=== PATIENT | female | born 1985 | race Hispanic/Latino ===

== ENCOUNTER 2025-01-06 09:57 | Day surgery (SDC) | payer MEDICARE, SELFPAY ==
--- NOTE | 2025-01-04 13:48 | EKG12_ITS ---
Test Reason : PRE OP Blood Pressure : */* mmHG Vent. Rate : 72 BPM Atrial Rate : 72 BPM P-R Int : 142 ms QRS Dur : 74 ms QT Int : 406 ms P-R-T Axes : 56 -21 7 degrees QTcB Int : 444 ms Normal sinus rhythm Possible Left atrial enlargement Low voltage QRS Borderline ECG Confirmed by NAYAN MONTOYA, CHUY ([id number]), film editor ARLETTE LAURENT ([id number]) on 01/05/2025 5:47:19 AM Referred By: Demetra Celeste Confirmed By: CHUY SPICER MD
[2025-01-04 14:19] LABS: Hematocrit 41.6 % (37-47); Mean Corp Hgb Conc 33.7 g/dL (32-36); Mean Corpuscular Hgb 30.1 pg (27.0-32.0); Mean Corpuscular Volume 89.5 fL (81-99); Mean Platelet Vol. 8.6 fl (6.2-12.0); Platelet Count 195 K/mm3 (150-450); RBC Distribution Width CV 12.2 % (11.6-14.6); RBC Distribution Width SD 39.9 fl (35.1-43.9); Red Blood Count 4.65 M/mm3 (4.2-5.4); White Blood Count 8.7 K/mm3 (4.4-11.0)
[2025-01-04 14:56] LABS: ALB/GLOB Ratio 1.4 RATIO (0.9-2.4); AST(SGOT) 26 U/L (<=31); Alanine Aminotransfer ALT/SGPT 33 U/L (<=34); Albumin, Serum 4.2 g/dL (3.5-5.0); Alkaline Phosphatase 82 U/L (35-104); Anion Gap 10 (5-15); BUN 13 mg/dL (4-19); BUN/Creat Ratio 16.9 RATIO (10-20); Calcium,Total 9.8 mg/dL (7.6-11.0); Carbon Dioxide 23.7 mmol/L (21.0-32.0); Chloride 105 mmol/L (98-108); Creatinine, Serum 0.75 mg/dL (0.70-1.20); EST Glomerular Filtration Rate 102 (>60); Glucose 120 mg/dL (70-99); Potassium 4.2 mmol/L (3.3-5.1); Protein, Total 7.2 g/dL (5.9-8.4); Sodium Level 139 mmol/L (133-145); Total Bilirubin 0.44 mg/dL (0.00-1.30)
--- NOTE | 2025-01-05 11:58 | PAT.ANESEVAL ---
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 When Was Last Pacemaker Check QUESTION #4 FULL TEXT: You/Your Family Experience fever (hyperthermia) with Anesthesia Last Oral Intake Last Oral intake: Last Oral Intake NPO since Meds taken in AM with sips of water? Meds patient instructed to take am of surgery PONV PONV - engineering department chair: PONV - engineering department chair Female Yes 01/03/25 12:32 HX of Motion Sickness No 01/03/25 12:32 HX of N/V After Surgery No 01/03/25 12:32 Non-Smoker Yes 01/03/25 12:32 Duration of Surgery greater No 01/03/25 12:32 than 60 minutes Number of Risk Factors 2 01/03/25 12:32 PONV Score Moderate Risk 01/03/25 12:32 Respiratory Assessment Respiratory Assessment - engineering department chair: Respiratory Tract Infection Hx - engineering department chair Hx Respiratory Tract Infection No 01/03/25 12:32 STOP Sleep Apnea STOP Sleep Apnea - engineering department chair: STOP Sleep Apnea - engineering department chair Hx Hypertension No 01/03/25 12:32 Hx Sleep Apnea No 01/03/25 12:32 CPAP BIPAP Do you snore loudly (louder Yes 01/03/25 12:32 than talking or can be heard Do you often feel tired/ No 01/03/25 12:32 fatigued/ sleepy during daytime? Has anyone observed you stop No 01/03/25 12:32 breathing during sleep? STOP Results Negative 01/03/25 12:32 QUESTION #5 FULL TEXT : Do you snore loudly (louder than talking or can be heard through closed doors)? 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 Specify any problems Hx of Preganancy in last 3 No 01/03/25 12:32 Months Nurse Filling Out Transfusion DSCHRIBER 01/03/25 12:32 & Questions: Date: 01/03/25 01/03/25 12:32 Time: 12:36 01/03/25 12:32 Patient unable to answer at this time (ie. 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 Wears glasses Hallucinations Depression Anxiety Thyroid disease Diabetes Arthritis High cholesterol Back pain Migraine headache Seizures Heartburn History of IBS Non-smoker Hx of reduction of nasal fracture Home Medications ?Medication ?Instructions ?Recorded ?Last Taken ?Type benztropine 1 mg tablet 1 mg PO BID 01/03/25 Unknown History dulaglutide 3 mg/0.5 mL 3 mg subcut TU 01/03/25 12/28/24 History subcutaneous pen injector (Trulicity) duloxetine 30 mg capsule,delayed 30 mg PO DAILY 01/03/25 Unknown History release (Cymbalta) hydroxyzine HCl 100 mg tablet 100 mg PO TID 01/03/25 Unknown History levothyroxine 125 mcg tablet 125 mcg PO DAILY 01/03/25 Unknown History lubiprostone 24 mcg capsule 24 mcg PO BID 01/03/25 Unknown History rosuvastatin 20 mg tablet 20 mg PO DAILY 01/03/25 Unknown History topiramate 100 mg tablet (Topamax) 100 mg PO BID 01/03/25 Unknown History trazodone 100 mg tablet 100 mg PO QHS 01/03/25 Unknown History vitamin A-vitamin E 25,000 unit-30 1 cap PO DAILY 01/03/25 Unknown History unit capsule Allergy/AdvReac Type Severity Reaction Status Date / Time Penicillins Allergy Severe Swelling Verified 01/03/25 12:17 Surgical History (Updated 01/03/25 @ 13:06 by Sydney Jeffery) Hx of breast biopsy Hx of colonoscopy Social History Smoking Status: Never smoker Audit: Pertinent Findings Pertinent Findings EKG Perinent findings: 01/04/2025. Normal sinus rhythm 72 bpm. Left atrial enlargement. Recommendation Anesthesia Recommendation Anesthesia recommendation: OPTIMIZED for anesthesia
[2025-01-06] VITALS (8 sets, daily range): BP systolic 94–108; BP diastolic 53–67; PULSE 73–87; RESP 16; TEMP 36.2–36.4; O2SAT 94–100; BMI 28.6
[2025-01-06 10:32] LABS: Internal QC Validated? YES +Cl - CLEAR BKGD; Pregnancy, Urine Negative Negative
--- NOTE | 2025-01-06 11:05 | NURSING ---
During AC Preop assessment and check-in, [employer] used. Emy ID#[id number]
[2025-01-06 11:24] LABS: Bedside Glucose 146 mg/dL (74-106)
--- NOTE | 2025-01-06 11:25 | PRE.ANES_ITS ---
ASA Classification* ASA Classification ASA Classification: 2 Assessment & Plan Anesthesia* Anesthesia Assessment Anesthesia Assessment: Discussed sedation and/or anesthesia options, risks, benefits, and alternatives with patient/parents/legal guardian/POA. Questions invited. The patient/parents/legal guardian/POA seems to understand and agrees to proceed with anesthesia plan. Reviewed the physical assessment, medical history, allergy history and patient home medications list prior to surgery/procedure/anesthetic and documented any changes. Performed airway and anesthesia risk assessments. Anesthesia Type Anesthesia Type: MAC History Source History Obtained from:: Patient and Chart Anesthesia Focused Assessment* Temperature: 97.5 F Pulse Rate: 73 Blood Pressure: 108/60 Respiratory Rate: 16 Pulse Ox: 99 Oxygen Delivery Method: Room Air Airway Assessment Mouth opens: >3 cm Mallampati Score: I Teeth Condition: Missing (Patient is missing 3 teeth. Rest are tight.) Neck Range of motion (ROM): Full ROM Focused Labs Anesthesia Preop lab: CBC WBC 8.7 K/mm3 (4.4-11.0) 01/04/25 14:05 01/04/25 RBC 4.65 M/mm3 (4.2-5.4) 01/04/25 14:05 01/04/25 Hgb 14.0 g/dL (12.0-15.0) 01/04/25 14:05 01/04/25 Hct 41.6 % (37-47) 01/04/25 14:05 01/04/25 Plt Count 195 K/mm3 (150-450) 01/04/25 14:05 01/04/25 CHEMISTRY Potassium 4.2 mmol/L (3.3-5.1) 01/04/25 14:05 01/04/25 Sodium 139 mmol/L (133-145) 01/04/25 14:05 01/04/25 BUN 13 mg/dL (4-19) 01/04/25 14:01/04/25 Creatinine 0.75 mg/dL (0.70-1.20) 01/04/25 14:05 01/04/25 Glucose 120 mg/dL (70-99) H 01/04/25 14:05 01/04/25 POC Glucose 146 mg/dL (74-106) H 01/06/25 11:03 01/06/25 COAG Urine Test Negative Negative 01/06/25 10:13 01/06/25 Pre-Assessment Diagnosis/Proposed Procedure Planned Operative Procedure(s): HYSTEROSCOPY D&C POSS POLYPECTOMY POSS IUD INSERTION Anesthesia History 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 When Was Last Pacemaker Check QUESTION #4 FULL TEXT: You/Your Family Experience fever (hyperthermia) with Anesthesia Last Oral Intake Last Oral intake: Last Oral Intake NPO since 22:30 01/06/25 10:41 Meds taken in AM with sips of water? Meds patient instructed to take am of surgery PONV PONV - apartment assistant manager: PONV - apartment assistant manager Female Yes 01/03/25 12:32 HX of Motion Sickness No 01/03/25 12:32 HX of N/V After Surgery No 01/03/25 12:32 Non-Smoker Yes 01/03/25 12:32 Duration of Surgery greater No 01/03/25 12:32 than 60 minutes Number of Risk Factors 2 01/03/25 12:32 PONV Score Moderate Risk 01/03/25 12:32 Height & Weight Height & Weight: Anesthesia: Height & Weight Height 5 ft 01/06/25 10:41 Weight: 66.497 kg 01/06/25 10:41 Body Mass Index (BMI) 28.6 01/06/25 10:41 Respiratory Assessment Respiratory Assessment - apartment assistant manager: Respiratory Tract Infection Hx - apartment assistant manager Hx Respiratory Tract Infection No 01/03/25 12:32 STOP Sleep Apnea STOP Sleep Apnea - apartment assistant manager: STOP Sleep Apnea - apartment assistant manager Hx Hypertension No 01/03/25 12:32 Hx Sleep Apnea No 01/03/25 12:32 CPAP BIPAP Do you snore loudly (louder Yes 01/03/25 12:32 than talking or can be heard Do you often feel tired/ No 01/03/25 12:32 fatigued/ sleepy during daytime? Has anyone observed you stop No 01/03/25 12:32 breathing during sleep? STOP Results Negative 01/03/25 12:32 QUESTION #5 FULL TEXT : Do you snore loudly (louder than talking or can be heard through closed doors)? 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 Specify any problems Hx of Preganancy in last 3 No 01/03/25 12:32 Months Nurse Filling Out Transfusion DSCHRIBER 01/03/25 12:32 & Questions: Date: 01/03/25 01/03/25 12:32 Time: 12:36 01/03/25 12:32 Patient unable to answer at this time (ie. 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 Wears glasses Hallucinations Depression Anxiety Thyroid disease Diabetes Arthritis High cholesterol Back pain Migraine headache Seizures Heartburn History of IBS Non-smoker Hx of reduction of nasal fracture Home Medications ?Medication ?Instructions ?Recorded ?Last Taken ?Type benztropine 1 mg tablet 1 mg PO BID 01/03/25 04/09/2 5 History dulaglutide 3 mg/0.5 mL 3 mg subcut TU 01/03/2510/23 History subcutaneous pen injector (Trulicity) duloxetine 30 mg capsule,delayed 30 mg PO DAILY 01/04/25 History release (Cymbalta) hydroxyzine HCl 100 mg tablet 100 mg PO TID 01/03/25 0 01/04/25 History levothyroxine 125 mcg tablet 125 mcg PO DAILY 01/03/25 01/05/25 History lubiprostone 24 mcg capsule 24 mcg PO BID 01/03/2506/23 History rosuvastatin 20 mg tablet 20 mg PO DAILY 01/03/2505/23 History topiramate 100 mg tablet (Topamax) 100 mg PO BID 01/0301/05/25 History trazodone 100 mg tablet 100 mg PO QHS 01/03/2501/05 History vitamin A-vitamin E 25,000 unit-30 1 cap PO DAILY 04/2212/30/24 History unit capsule Allergy/AdvReac Type Severity Reaction Status Date / Time Penicillins Allergy Severe Swelling Verified 01/06/25 10:33 ciprofloxacin (From Cipro) Allergy Intermediate Other Verified 01/06/25 10:33 Surgical History Hx of breast biopsy Hx of colonoscopy Social History Smoking Status: Never smoker Review of Systems (Anesthesia) ROS Narrative System reviewed and no additional complaints, except as documented.
--- NOTE | 2025-01-06 11:30 | EMB_PTH ---
PATIENT: BANDAR SPRAGUE [place] [facility] [place][id number] AGE/SX: 39/F ROOM: RE01/06/[address]: Dr. Demetra Celeste, : 1985 BED: DIS: 01/06/2025 SPEC #: [id number] RECD: 01/06/25 13:53 STATUS: RUKHSANA GÉNESIS #: [id number] NII: 01/06/25 11:[address]: Demetra Celeste DEPT: SURGICAL PATHOLOGY RECD BY: Eladio Riojas Tissues: A - Endometrium, NOS Procedures: Surgery Specimen Level IV HEADER OPERATION: Hysteroscopy, D&C, possible polypectomy PRE-OP DIAGNOSIS: Dysfunctional uterine bleeding, vascular endometrium on pelvic ultrasound TISSUE SUBMITTED: A- Endometrial curettings MICROSCOPIC DIAGNOSIS A. Endometrium, curettage * Secretory endometrium MICROSCOPIC DESCRIPTION Slides are reviewed. GROSS DESCRIPTION A. Received in formalin in a container labeled with the patient's name, date of , and endometrial curettings are multiple espinosa-pink fragments of soft tissue admixed with blood and mucus measuring 2.5 x 2.3 x 0.3 cm in aggregate. Submitted in toto in A1. [facility] 01/07/2025 CPT:93149
--- NOTE | 2025-01-06 11:48 | PCM.DC ---
Discharge Instructions Diet Discharge Diet: No restrictions DC O2, CPAP, BIPAP needs Home O2 Discharge instructions: No Dressing / Incision Discharge Activity: May Drive (once you are more than 24 hours out from surgery) and May Shower (once you are more than 24 hours out from surgery) May resume sexual activity in: 1 week (nothing in the vagina and no soaking in water for 1 week) Weight Bearing Status: Weight bearing as tolerated Lifting Restrictions: none Dressing / Incision Call your doctor if you observe: Fever of 101 or Higher, Using more than 1 pad per hour, Shortness of breath, Dizziness, Chest pain, Increased palpitations (irregular heartbeat), Calf discomfort and Uncontrolled pain Follow Up Care Please Follow Up With: Demetra Celeste DO When: 4 weeks for IUD check Test Results: Test results from this visit will be discussed in further detail at your follow-up appointment, if applicable. Discharge Plan Admission Primary Reason for Your Visit: surgery Attending Provider: Demetra Celeste Primary Care Provider: LUIS ARMANDO ESTRADA Instructions Print Language: [place] Discharge Orders/Prescriptions Prescriptions: Continued Trulicity 3 mg/0.5 mL pen injector 3 mg subcut TU rosuvastatin 20 mg tablet 20 mg PO DAILY topiramate [Topamax] 100 mg tablet 100 mg PO BID hydroxyzine HCl 100 mg tablet 100 mg PO TID benztropine 1 mg tablet 1 mg PO BID lubiprostone 24 mcg capsule 24 mcg PO BID duloxetine [Cymbalta] 30 mg capsule,delayed release(DR/EC) 30 mg PO DAILY trazodone 100 mg tablet 100 mg PO QHS vitamin A-vitamin E 25,000-30 unit capsule 1 cap PO DAILY levothyroxine 125 mcg tablet 125 mcg PO DAILY Referrals / Follow Up: Luis Armando Estrada [Other] Disposition Disposition (needs filled in before D/C Order can be placed): Home, Self Care
[2025-01-06] MEDS: Lidocaine 1%/Epi 1:200 (30ml) 30 ML AMPUL (12:01)
[2025-01-06] MEDS: Levonorgestrel IUD (Liletta) 1 EACH INTRA-UTER (12:15)
--- NOTE | 2025-01-06 12:23 | PCM.OPRPT ---
Problems Associated Problem List Diagnoses (1) DUB (dysfunctional uterine bleeding): (2) Endometrial polyp: Operative Report (Standard) Operative Information Date of Procedure: 01/06/25 Pre-Operative Diagnosis: DUB, endometrial polyp Post-Operative Diagnosis: As above Surgery/Procedure Performed: Hysteroscopy, D&C, polypectomy, Liletta IUD insertion manager visual: No Type of Anesthesia: MAC RN Documented Start/Stop Times: Operation Date: 01/06/25 11:30 Case Time Into Pre-Op 01/06/25 10:00 Anesthesia Start 01/06/25 11:46 Into Room 01/06/25 11:46 Procedure Start 01/06/25 12:01 Procedure End 01/06/25 12:19 Anesthesia End 01/06/25 12:23 Out of Room 01/06/25 12:23 Into Recovery 01/06/25 12:25 Procedure Start Time: 12:01 Procedure Stop Time: 12:19 Select all DRAINS/GRAFTS/IMPLANTS that apply: None Special Medications: None Estimated Blood Loss: < 20 mL Fluids Replaced: See anesthesia record Specimen collected: Yes Description of specimen(s) removed: Endometrial curettings Endometrial polyp Description of surgery: Patient was taken to the operating room where MAC anesthesia was induced and found to be adequate. She was prepped and draped in the dorsal lithotomy position using yellowfin stirrups. A weighted speculum was placed in the vagina to expose the cervix. The anterior lip of the cervix was grasped with a single-tooth tenaculum. 10 cc of local was injected circumferentially in the cervix. The cervix was serially dilated to accommodate the Symphion hysteroscope. The Symphion hysteroscope was advanced into the uterus, and normal saline was used as distention media to distend the uterine cavity. Bilateral tubal ostia were visualized. There was a single endometrial polyp that was noted. The cavity was otherwise normal-appearing. The Symphion resection device was used to resect the 1 endometrial polyp. The Symphion hysteroscope was then removed. A sharp curettage was performed for a moderate amount of tissue. The endometrial polyp and endometrial cuttings were sent to pathology for review. The uterus sounded to 8 cm. The Liletta IUD was inserted at the fundus of the uterus in usual sterile fashion. The strings were trimmed to 2 cm. Bleeding was scant. All instruments were removed from the vagina. Sponge counts were correct. A vaginal sweep was performed. The patient was taken to the recovery in stable condition. Surgical Findings: 1 endometrial polyp in the uterine cavity Uterus sounded to 8 cm Complications Complications: No Admit VTE Documentation VTE Present on Admission: No VTE Mechan Device Prophylaxis: SCD's
--- NOTE | 2025-01-06 12:28 | PCM.POST.ANE ---
Anesthesia: Postop Eval I Current Vital Signs Temperature: 97.2 F Pulse Rate: 87 Blood Pressure: 98/53 Respiratory Rate: 16 Pulse Ox: 94 Assessment Airway patent: Yes Spontaneous unlabored respirations: Yes nausea: No Vomiting: No Anesthesia Complication: No Fluid Hydration Crystalloid volume administer (ml): 250 Total IV fluid infused: 250 Progress Note Anesthesia document: Postop Eval 1 completed: Yes
--- NOTE | 2025-01-06 12:58 | POSTOPAN2_ITS ---
Anesthesia Postop Eval I Sum Postop Eval Completion status Anesthesia document: Postop Eval 1 completed: Yes Anesthesia Postop Eval I Summary Anesthesia Postop Eval I Summary: Anesthesia Postop Eval I: Assessment Summary Airway patent Yes 01/06/25 12:28 AUDIT [email or web address].TNES Spontaneous unlabored Yes 01/06/25 12:28 AUDIT ASSOCIATE.TNES respirations Mental status nausea No 01/06/25 12:28 AUDIT ASSOCIATE.TNES Vomiting No 01/06/25 12:28 AUDIT ASSOCIATE.TNES Anesthesia Postop Eval I: Fluid Summary Crystalloid volume administer 250 01/06/25 12:28 AUDIT ASSOCIATE.TNES (ml) Colloids volume administered ( ml) Blood Product volume administered (ml) Total IV fluid infused 250 01/06/25 12:28 AUDIT [email or web address].TNES Anesthesia Postop Eval I: Summary Notes Anesthesia Complication No 01/06/25 12:28 AUDIT [email or web address].TNES Anesthesia Complication Comment: Post-operative progress note Anesthesia: Postop Eval II Evaluation Mental status: Awake and Calm Pain Level: 1 nausea: No Vomiting: No Complications Anesthesia Complication: No
--- NOTE | 2025-01-06 12:58 | PCM.POSTANE2 ---
Anesthesia Postop Eval I Sum Postop Eval Completion status Anesthesia document: Postop Eval 1 completed: Yes Anesthesia Postop Eval I Summary Anesthesia Postop Eval I Summary: Anesthesia Postop Eval I: Assessment Summary Airway patent Yes 01/06/25 12:28 COGNOS [email or web address] Spontaneous unlabored Yes 01/06/25 12:28 COGNOS [email or web address] respirations Mental status nausea No 01/06/25 12:28 COGNOS [email or web address].TNES Vomiting No 01/06/25 12:28 COGNOS [email or web address] Anesthesia Postop Eval I: Fluid Summary Crystalloid volume administer 250 01/06/25 12:28 COGNOS [email or web address].TNES (ml) Colloids volume administered ( ml) Blood Product volume administered (ml) Total IV fluid infused 250 01/06/25 12:28 COGNOS [email or web address] Anesthesia Postop Eval I: Summary Notes Anesthesia Complication No 01/06/25 12:28 COGNOS [email or web address].TNES Anesthesia Complication Comment: Post-operative progress note Anesthesia: Postop Eval II Evaluation Mental status: Awake and Calm Pain Level: 1 nausea: No Vomiting: No Complications Anesthesia Complication: No
[2025-01-06] MEDS: Acetaminophen 325 MG Tablet 650 MG PO (13:18)
[2025-01-06] MEDS: Ibuprofen 600 MG Tablet PO (13:40)
== END 2025-01-06 13:55 | disposition home or self-care (01) ==
LOC: SDC 09:57 → AC 10:00
PROVIDERS: Referring Provider Obstetrics & Gynecology; Visit Provider Obstetrics & Gynecology
PROC: 0UB98ZZ Excision of Uterus, Via Natural or Artificial Opening Endoscopic (ICD-10-PCS; CPT 58558; principal; 2025-01-06 11:15)
DX: N84.0 Polyp of corpus uteri (principal); E11.9 Type 2 diabetes mellitus without complications; N93.8 Other specified abnormal uterine and vaginal bleeding; K21.9 Gastro-esophageal reflux disease without esophagitis; E78.00 Pure hypercholesterolemia, unspecified; E07.9 Disorder of thyroid, unspecified; Z79.890 Hormone replacement therapy; Z79.899 Other long term (current) drug therapy; R93.5 Abnormal findings on diagnostic imaging of other abdominal regions, including retroperitoneum; Z79.85 Long-term (current) use of injectable non-insulin antidiabetic drugs
CPT/HCPCS: 58558; 58300; 00952; 36415; 80053; 81025; 82962; 85027; 86850; 86900; 86901; 88305; 93005; A4216; J2405